=== PATIENT | male | born 1980 | race Asian ===

== ENCOUNTER 2016-07-23 22:38 | Emergency (ER) | payer SELFPAY ==
[~2016-07-23] VITALS: Ht 167.6 cm; Wt 86.2 kg
[2016-07-23 23:15] VITALS: BP 151/104
[2016-07-23] MEDS ORDERED: LORazepam Inj 2mg/ml 1ml IM ONE (23:15)
[2016-07-24 01:15] VITALS: BP 145/95
[2016-07-24 03:15] VITALS: BP 148/91
[2016-07-24 05:13] VITALS: BP 140/85
[2016-07-24 06:38] VITALS: BP 141/81
--- NOTE | 2016-07-24 20:45 | Emergency Room Report ---
History of Present Illness General Chief Complaint: Overdose Source: Patient, EMS Present Illness HPI Patient is a 35-year-old male presented after increased methamphetamine use. Patient stated that he had used methamphetamine approximately 6 hours prior to arrival. Patient read by EMS. The patient denies any chest pain or shortness of breath. Patient states that he is not suicidal. Patient denies other complaints. Allergies: Coded Allergies: No Known Allergies (Unverified , 07/23/16) Patient History Past Medical History: see triage record Reviewed Nursing Documentation: PMH: Agreed, PSxH: Agreed Nursing Documentation-PMH Past Medical History: No Stated History Review of Systems All Other Systems: negative except mentioned in HPI Physical Exam Vital Signs Date Time Temp Pulse Resp B/P Pulse Ox O2 Delivery O2 Flow Rate FiO2 07/23/16 22:42 98.1 94 15 151/104 98 Room Air Sp02 EP Interpretation: reviewed, normal General Appearance: alert/responsive, no apparent distress, GCS 15, non-toxic Head: atraumatic Eyes: PERRL, lids + conjunctiva normal ENT: hearing intact, no angioedema Neck: supple/symm/no masses, no meningismus Respiratory: effort normal, no wheezing, chest symmetrical Cardiovascular: regular rate, rhythm, no edema Cardiovascular #2: 2+ carotid (R), 2+ carotid (L), 2+ dorsalis pedis (R), 2+ dorsalis pedis (L) Gastrointestinal: non-tender, no mass, non-distended, no rebound/guarding, normal bowel sounds Musculoskeletal: gait & station normal, strength & tone normal, normal ROM, non -tender Neurologic: normal inspection, CN II-XII intact, oriented x3, sensory intact, normal speech Psychiatric: normal inspection, judgment & insight normal, mood normal, no suicidal/homicidal ideation Skin: no rash, well hydrated Lymphatic: normal inspection Medical Decision Making Diagnostic Impression: Primary Impression: Drug overdose ER Course Patient presented after methamphetamine use. Differential diagnosis included but was not limited to psychosis, rhabdomyolysis, arrhythmia, among others. Patient was observed in the emergency department with gradual improvement. He was given ativan. He denied suicidal thoughts or hallucinations. Patient was discharged home. He was advised to stop using drugs. He was advised to follow up with outpatient mental health. Last Vital Signs Date Time Temp Pulse Resp B/P Pulse Ox O2 Delivery O2 Flow Rate FiO2 07/24/16 06:38 97.9 79 17 141/81 98 Room Air Status: improved Disposition: HOME, SELF-CARE Condition: Stable Referrals: NOT CHOSEN IPA/MD,REFERRING (PCP) Patient Instructions: Stimulant Use Disorder-Methamphetamines Ten Mckeon Jul 24, 2016 20:43
== END 2016-07-24 06:38 | disposition home or self-care (01) ==
LOC: EDBD 22:38 → EMR 22:58
DX: T43.621A Poisoning by amphetamines, accidental (unintentional), initial encounter (principal); Y92.9 Unspecified place or not applicable
CPT/HCPCS: 96372; 99283